=== PATIENT | male | born 1990 | race Two or more races ===

== ENCOUNTER 2022-10-29 00:29 | Emergency (ER) | payer SELFPAY ==
[~2022-10-29] VITALS: Ht 165.1 cm; Wt 124.2 kg
[2022-10-29 02:20] LABS: Basophils # (auto) 0.1 10 ^3/uL (0-0.2); Basophils % (auto) 0.7 % (0.0-2.0); Eosinophils # (auto) 0.3 10 ^3/uL (0-0.8); Eosinophils % (auto) 2.7 % (0.0-7.0); Hematocrit 47.2 % (41.0-53.0); Hemoglobin 15.9 g/dL (13.5-17.5); Lymphocytes # (auto) 3.3 10 ^3/uL (0.4-5.4); Lymphocytes % (auto) 31.3 % (10.0-50.0); Mean Corpuscular Hemoglobin 30.8 pg (28.0-32.0); Mean Corpuscular Hgb Conc. 33.7 g/dL (32.0-36.0); Mean Corpuscular Volume 91.4 fL (80.0-100.0); Monocytes % (auto) 9.1 % (0.0-12.0); Neutrophils # (auto) 5.9 10 ^3/uL (1.6-8.6); Neutrophils % (auto) 56.2 % (37.0-80.0); Nucleated Red Blood Cells % 0.1 %; Red Blood Cells 5.17 10^6/uL (4.5-5.90); Red Cell Distribution Width 12.7 % (11.8-14.3); White Blood Cell 10.6 10^3/uL (4.4-10.8)
[2022-10-29 02:38] LABS: Albumin 3.7 g/dL (3.4-5.0); Calcium 9.4 mg/dL (8.5-10.1)
[2022-10-29 02:41] LABS: BUN/Creatinine Ratio 10.9 (10.0-20.0)
[2022-10-29 02:44] LABS: Bilirubin, Total 0.5 mg/dL (0.2-1.0); Total Protein 7.7 g/dL (6.4-8.2)
[2022-10-29] MEDS ORDERED: LACTATED RINGER'S 1,000 ML IV ONE (06:45)
[2022-10-29] MEDS ORDERED: InsuLIN REG 1unit/0.01ml Soln (100units/ml) IV ONE (06:45)
[2022-10-29] MEDS ORDERED: BACDST PO (06:49)
[2022-10-29 09:05] VITALS: BP 142/97
== END 2022-10-29 09:08 | disposition home or self-care (01) ==
LOC: ER 00:29
DX: M25.571 Pain in right ankle and joints of right foot (principal); L02.221 Furuncle of abdominal wall; E11.65 Type 2 diabetes mellitus with hyperglycemia; I10 Essential (primary) hypertension
CPT/HCPCS: 36415; 73630; 80053; 82962; 85025; 96361; 96374; 99284; J1815